=== PATIENT | male | born 1960 ===

== ENCOUNTER → 2023-04-11 | Outpatient (CLI) | payer OTHER ==
[2023-04-11 11:01] LABS: Basophils # (auto) 0 10 ^3/uL (0-0.2); Basophils % (auto) 0.5 % (0.0-2.0); Eosinophils # (auto) 0.3 10 ^3/uL (0-0.8); Eosinophils % (auto) 3.7 % (0.0-7.0); Hematocrit 45.6 % (41.0-53.0); Hemoglobin 15.2 g/dL (13.5-17.5); Lymphocytes # (auto) 3.5 10 ^3/uL (0.4-5.4); Lymphocytes % (auto) 42.6 % (10.0-50.0); Mean Corpuscular Hemoglobin 29.5 pg (28.0-32.0); Mean Corpuscular Hgb Conc. 33.3 g/dL (32.0-36.0); Mean Corpuscular Volume 88.7 fL (80.0-100.0); Monocytes # (auto) 0.7 10 ^3/uL (0-1.3); Monocytes % (auto) 8.1 % (0.0-12.0); Neutrophils # (auto) 3.7 10 ^3/uL (1.6-8.6); Neutrophils % (auto) 45.1 % (37.0-80.0); Nucleated Red Blood Cells % 0.1 %; Red Blood Cells 5.14 10^6/uL (4.5-5.90); Red Cell Distribution Width 13.1 % (11.8-14.3); White Blood Cell 8.2 10^3/uL (4.4-10.8)
[2023-04-11 11:34] LABS: Albumin 3.7 g/dL (3.4-5.0); Calcium 9.4 mg/dL (8.5-10.1); Magnesium 1.7 mg/dL (1.6-2.6); Potassium 4.6 mmol/L (3.5-5.1); Uric Acid 6.2 mg/dL (3.5-7.2)
[2023-04-11 11:39] LABS: Prostate Specific Antigen 2.22 ng/mL (0.0-4.0)
[2023-04-11 11:42] LABS: BUN/Creatinine Ratio 15.7 (10.0-20.0); Bilirubin, Total 0.6 mg/dL (0.2-1.0); Total Protein 7.5 g/dL (6.4-8.2)
[2023-04-11 12:02] LABS: Urine Bacteria NONE SEEN /hpf (None Seen); Urine Blood Negative /uL (Negative); Urine Specific Gravity 1.026 (1.001-1.035); Urine WBC 1 /hpf (0 - 3)
== END | disposition home or self-care (01) ==
LOC: LAB 10:30
PROVIDERS: ATTEND Family Medicine
DX: I10 Essential (primary) hypertension (principal); E11.65 Type 2 diabetes mellitus with hyperglycemia
CPT/HCPCS: 36415; 80053; 80061; 81001; 82306; 82607; 83036; 83540; 83735; 84153; 84403; 84443; 84550; 85025

== ENCOUNTER → 2023-09-13 | Outpatient (CLI) | payer OTHER ==
[2023-09-13 12:38] LABS: Chloride 106 mmol/L (98-107); Potassium 4.3 mmol/L (3.5-5.1); Sodium 141 mmol/L (136-145)
[2023-09-13 12:39] LABS: Anion Gap 7 (5-15); Carbon Dioxide 28 mmol/L (20-30)
[2023-09-13 12:44] LABS: BUN/Creatinine Ratio 12.4 (10.0-20.0); Blood Urea Nitrogen 15 mg/dL (9-23); Glucose 130 mg/dL (74-106); Triglycerides 139 mg/dL (< 150)
[2023-09-13 12:45] LABS: LDL Cholesterol 17 mg/dL (< 100)
[2023-09-13 12:46] LABS: Cholesterol 69 mg/dL (< 200); HDL Cholesterol 32 mg/dL (40-59)
== END | disposition home or self-care (01) ==
LOC: LAB 11:55
PROVIDERS: ATTEND Family Medicine
DX: Z13.31 Encounter for screening for depression (principal); E11.65 Type 2 diabetes mellitus with hyperglycemia; N17.9 Acute kidney failure, unspecified; Z91.199 Patient's noncompliance with other medical treatment and regimen due to unspecified reason
CPT/HCPCS: 36415; 80048; 80061; 82043; 83036

== ENCOUNTER → 2023-11-02 | Outpatient (CLI) | payer OTHER | END | disposition home or self-care (01) | LOC: LAB 09:21 | PROVIDERS: ATTEND Family Medicine | DX: E11.9 Type 2 diabetes mellitus without complications (principal); E55.9 Vitamin D deficiency, unspecified; Z68.37 Body mass index [BMI] 37.0-37.9, adult | CPT/HCPCS: 36415; 82306; 83036 ==

== ENCOUNTER 2024-03-20 22:07 | Emergency (ER) | payer OTHER, MEDICAID ==
[~2024-03-20] VITALS: Ht 170.2 cm; Wt 84.5 kg
[2024-03-20 22:50] VITALS: BP 133/78; PULSE 85; RESP 19; TEMP 98.5; O2SAT 95
[2024-03-21 00:10] LABS: Basophils # (auto) 0 10 ^3/uL (0-0.2); Basophils % (auto) 0.2 % (0.0-2.0); Eosinophils # (auto) 0 10 ^3/uL (0-0.8); Eosinophils % (auto) 0.6 % (0.0-7.0); Hemoglobin 14.3 g/dL (13.5-17.5); Lymphocytes % (auto) 27.6 % (10.0-50.0); Mean Corpuscular Hemoglobin 28.3 pg (28.0-32.0); Mean Corpuscular Hgb Conc. 33.1 g/dL (32.0-36.0); Mean Corpuscular Volume 85.5 fL (80.0-100.0); Monocytes # (auto) 1.2 10 ^3/uL (0-1.3); Monocytes % (auto) 16.2 % (0.0-12.0); Neutrophils # (auto) 4.1 10 ^3/uL (1.6-8.6); Neutrophils % (auto) 55.4 % (37.0-80.0); Nucleated Red Blood Cells % 0.1 %; Red Blood Cells 5.03 10^6/uL (4.5-5.90); Red Cell Distribution Width 14.8 % (11.8-14.3); White Blood Cell 7.4 10^3/uL (4.4-10.8)
[2024-03-21 00:27] LABS: Alanine Aminotransferase 32 U/L (7-40); Albumin 4.1 g/dL (3.2-4.8); Alkaline Phosphatase 67 U/L (46-116); Anion Gap 9 (5-15); Aspartate Aminotransferase 35 U/L (13-40); BUN/Creatinine Ratio 14.5 (10.0-20.0); Bilirubin, Total 0.8 mg/dL (0.2-1.0); Blood Urea Nitrogen 17 mg/dL (9-23); Calcium 8.4 mg/dL (8.7-10.4); Carbon Dioxide 25 mmol/L (20-30); Chloride 104 mmol/L (98-107); Glucose 153 mg/dL (74-106); Potassium 3.9 mmol/L (3.5-5.1); Sodium 138 mmol/L (136-145); Total Protein 6.7 g/dL (5.7-8.2)
[2024-03-21] MEDS: chlorproMAZINE HCL 25 MG/1 ML AMP IM ONE (00:45)
[2024-03-21] MEDS ORDERED: LOPE-20 PO (00:55)
[2024-03-21] MEDS ORDERED: CHLO25TA59 PO (00:55)
[2024-03-21] MEDS: LOPERAMIDE HCL 2 MG CAP/TAB PO ONE (02:00)
== END 2024-03-21 03:52 | disposition home or self-care (01) ==
LOC: ER 22:07
DX: K52.9 Noninfective gastroenteritis and colitis, unspecified (principal); R06.6 Hiccough; I10 Essential (primary) hypertension; E11.9 Type 2 diabetes mellitus without complications
CPT/HCPCS: 36415; 80053; 85025; 99283; J3230

== ENCOUNTER → 2024-06-09 | Outpatient (CLI) | payer OTHER ==
[~2024-06-09] MED LIST: CHLO25TA59 PO; LOPE-20 PO
[2024-06-09 11:30] LABS: Creatinine, Urine 47.91 mg/dL (30.0-125.0)
[2024-06-09 11:32] LABS: Micro Albumin < 3.0 mg/L (<30.0)
== END | disposition home or self-care (01) ==
LOC: LAB 09:35
PROVIDERS: ATTEND Family Medicine
DX: E11.65 Type 2 diabetes mellitus with hyperglycemia (principal)
CPT/HCPCS: 36415; 82043; 82565; 82570; 83036

== ENCOUNTER → 2024-07-17 | Outpatient (CLI) | payer OTHER | END | disposition home or self-care (01) | LOC: LAB 10:38 | PROVIDERS: ATTEND Family Medicine | DX: E11.65 Type 2 diabetes mellitus with hyperglycemia (principal); E78.2 Mixed hyperlipidemia | CPT/HCPCS: 36415; 83036 ==

== ENCOUNTER → 2024-10-01 | Outpatient (CLI) | payer OTHER | END | disposition home or self-care (01) | LOC: LAB 09:05 | PROVIDERS: ATTEND Family Medicine | DX: E78.2 Mixed hyperlipidemia (principal); E11.65 Type 2 diabetes mellitus with hyperglycemia; Z68.36 Body mass index [BMI] 36.0-36.9, adult | CPT/HCPCS: 36415; 82306; 83036 ==

== ENCOUNTER → 2024-12-30 | Outpatient (CLI) | payer OTHER ==
[2024-12-30 10:28] LABS: Basophils # (auto) 0 10 ^3/uL (0-0.2); Basophils % (auto) 0.4 % (0.0-2.0); Eosinophils # (auto) 0.3 10 ^3/uL (0-0.8); Hematocrit 42.7 % (41.0-53.0); Hemoglobin 14.1 g/dL (13.5-17.5); Lymphocytes # (auto) 3.2 10 ^3/uL (0.4-5.4); Lymphocytes % (auto) 37.8 % (10.0-50.0); Mean Corpuscular Hemoglobin 27.8 pg (28.0-32.0); Mean Corpuscular Hgb Conc. 32.9 g/dL (32.0-36.0); Mean Corpuscular Volume 84.4 fL (80.0-100.0); Monocytes # (auto) 0.7 10 ^3/uL (0-1.3); Monocytes % (auto) 8.6 % (0.0-12.0); Neutrophils # (auto) 4.1 10 ^3/uL (1.6-8.6); Neutrophils % (auto) 49.2 % (37.0-80.0); Platelet Count (auto) 294 10^3/uL (140-450); Red Blood Cells 5.06 10^6/uL (4.5-5.90); Red Cell Distribution Width 15.3 % (11.8-14.3); White Blood Cell 8.4 10^3/uL (4.4-10.8)
[2024-12-30 11:16] LABS: Alanine Aminotransferase 20 U/L (7-40); Alkaline Phosphatase 81 U/L (46-116); Anion Gap 13 (5-15); Calcium 10.4 mg/dL (8.7-10.4); Carbon Dioxide 25 mmol/L (20-31); Chloride 105 mmol/L (98-107); Potassium 4.8 mmol/L (3.5-5.1); Sodium 143 mmol/L (136-145)
[2024-12-30 11:17] LABS: BUN/Creatinine Ratio 15.5 (10.0-20.0); Blood Urea Nitrogen 17 mg/dL (9-23); Total Protein 6.8 g/dL (5.7-8.2)
[2024-12-30 11:18] LABS: Albumin 4.4 g/dL (3.2-4.8)
[2024-12-30 11:19] LABS: Bilirubin, Total 0.6 mg/dL (0.2-1.0)
[2024-12-30 11:32] LABS: Aspartate Aminotransferase 11 U/L (13-40); Glucose 171 mg/dL (74-106)
[2024-12-30 12:15] LABS: Triglycerides 125 mg/dL (< 150)
[2024-12-30 12:16] LABS: LDL Cholesterol 19 mg/dL (< 100)
[2024-12-30 12:17] LABS: Cholesterol 79 mg/dL (< 200); HDL Cholesterol 43 mg/dL (40-59)
== END | disposition home or self-care (01) ==
LOC: LAB 09:26
PROVIDERS: ATTEND Family Medicine
DX: E11.42 Type 2 diabetes mellitus with diabetic polyneuropathy (principal); E11.65 Type 2 diabetes mellitus with hyperglycemia; E78.2 Mixed hyperlipidemia; E55.9 Vitamin D deficiency, unspecified
CPT/HCPCS: 36415; 80053; 80061; 82306; 83036; 84443; 85025

== ENCOUNTER 2025-04-02 09:40 | Outpatient (CLI) | payer OTHER | END 2025-04-02 17:00 | disposition home or self-care (01) | LOC: LAB 09:40 | PROVIDERS: ATTEND Family Medicine | DX: E11.65 Type 2 diabetes mellitus with hyperglycemia (principal); E11.42 Type 2 diabetes mellitus with diabetic polyneuropathy | CPT/HCPCS: 36415; 82947; 83036 ==

== ENCOUNTER 2025-06-23 09:17 | Outpatient (CLI) | payer OTHER ==
[2025-06-23 09:53] LABS: Urine Protein, UAD Negative (Negative)
[2025-06-23 10:30] LABS: Calcium 9.5 mg/dL (8.7-10.4); Chloride 104 mmol/L (98-107); Potassium 4.1 mmol/L (3.5-5.1); Sodium 141 mmol/L (136-145)
[2025-06-23 10:31] LABS: Anion Gap 12 (5-15); Carbon Dioxide 25 mmol/L (20-31)
[2025-06-23 10:32] LABS: Microalb/Creat Ratio, Urine 4.00
[2025-06-23 10:37] LABS: BUN/Creatinine Ratio 12.4 (10.0-20.0); Blood Urea Nitrogen 15 mg/dL (9-23)
[2025-06-23 10:38] LABS: Glucose 110 mg/dL (74-106)
== END 2025-06-23 17:00 | disposition home or self-care (01) ==
LOC: LAB 09:17
PROVIDERS: ATTEND Family Medicine
DX: E11.65 Type 2 diabetes mellitus with hyperglycemia (principal); E78.2 Mixed hyperlipidemia
CPT/HCPCS: 36415; 80048; 81001; 82043; 82570; 83036; 84443

== ENCOUNTER 2025-09-28 10:06 | Outpatient (CLI) | payer OTHER ==
[2025-09-28 11:06] LABS: Hematocrit 42.6 % (41.0-53.0); Hemoglobin 14.1 g/dL (13.5-17.5); Mean Corpuscular Hemoglobin 27.0 pg (28.0-32.0); Mean Corpuscular Volume 81.9 fL (80.0-100.0); Nucleated Red Blood Cells % 0.0 %
[2025-09-28 11:07] LABS: Urine Protein, UAD Negative (Negative)
[2025-09-28 11:35] LABS: Alanine Aminotransferase 21 U/L (7-40); Albumin 4.4 g/dL (3.2-4.8); Alkaline Phosphatase 81 U/L (46-116); Anion Gap 13 (5-15); BUN/Creatinine Ratio 16.2 (10.0-20.0); Bilirubin, Total 1.0 mg/dL (0.2-1.0); Blood Urea Nitrogen 19 mg/dL (9-23); Calcium 9.6 mg/dL (8.7-10.4); Carbon Dioxide 26 mmol/L (20-31); Chloride 105 mmol/L (98-107); Cholesterol 75 mg/dL (< 200); Potassium 4.3 mmol/L (3.5-5.1); Sodium 144 mmol/L (136-145); Total Protein 7.1 g/dL (5.7-8.2); Triglycerides 147 mg/dL (< 150)
[2025-09-28 11:39] LABS: Iron 76.0 ug/dL (65-175)
[2025-09-28 11:42] LABS: Total Iron Binding Capacity 373.0 ug/dL (250-425)
[2025-09-28 11:50] LABS: Glucose 151 mg/dL (74-106); HDL Cholesterol 40 mg/dL (40-59)
== END 2025-09-28 17:00 | disposition home or self-care (01) ==
LOC: LAB 10:06
PROVIDERS: ATTEND Family Medicine
DX: I11.0 Hypertensive heart disease with heart failure (principal); I50.9 Heart failure, unspecified; E11.65 Type 2 diabetes mellitus with hyperglycemia; E78.2 Mixed hyperlipidemia; K21.9 Gastro-esophageal reflux disease without esophagitis
CPT/HCPCS: 36415; 80053; 80061; 80069; 81001; 83036; 83540; 83550; 84443; 85025